=== PATIENT | male | born 1985 | race American Indian/Alaskan Native ===

== ENCOUNTER 2017-09-20 15:02 | Emergency (ER) | payer OTHER ==
[2017-09-20 15:09] VITALS: BP 154/76; PULSE 86; RESP 18; TEMP 97.6; O2SAT 99
--- NOTE | 2017-09-20 15:40 | ED PDOC ---
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 Patient states he was going through a bag and there was dry blood on the wrappers his hand touched. Patient reports the wrappers have not been used since 8 AM (7 hours prior to arrival). Patient has no open cuts or wounds and reports he washed his hand immediately. Patient states he was told to come to the ED to follow up for precautionary measures thus prompting his visit. Past Medical History Reviewed: Historical Data, Nursing Documentation, Vital Signs Vital Signs: Last Vital Signs Temp 97.6 F 09/20/17 15:07 Pulse 86 09/20/17 15:07 Resp 18 09/20/17 15:07 BP 154/76 H 09/20/17 15:07 Pulse Ox 99 09/20/17 15:40 - Surgical History Surgical History: No Surg Hx - Family History Family History: States: Unknown Family Hx - Allergies Allergies/Adverse Reactions: Allergies Allergy/AdvReac Type Severity Reaction Status Date / Time No Known Allergies Allergy Verified 09/20/17 15:07 Review of Systems ROS Statement: Except As Marked, All Systems Reviewed And Found Negative Skin: Negative for: Other (open cuts or wounds.) Physical Exam - Reviewed Nursing Documentation Reviewed: Yes Vital Signs Reviewed: Yes - Physical Exam Appears: Positive for: Well, Non-toxic, No Acute Distress Head Exam: Positive for: ATRAUMATIC, NORMAL INSPECTION, NORMOCEPHALIC Skin: Positive for: Normal Color, Warm, Dry Eye Exam: Positive for: Normal appearance Respiratory: Positive for: Normal Breath Sounds. Negative for: Respiratory Distress Neurologic/Psych: Positive for: Alert, Oriented (x 3) Comments: Patient presents with a limited exam due to no open wounds or cuts. Patient was told to follow up with ED for precautionary measures prompting his visit. - ECG O2 Sat by Pulse Oximetry: 99 (RA) Pulse Ox Interpretation: Normal Medical Decision Making Medical Decision Making: TIME: 1540 Plan: -- Based on history and exam, patient will be discharged. Patient states he fully agrees with and understands discharge instructions. States that he agrees with the plan and disposition. Verbalized and repeated discharge instructions and plan. I have given the patient opportunity to ask any additional questions. Scribe Attestation: Documented by Lilly Diaz, acting as a scribe for Yvonne Membreno PA-C. Provider Scribe Attestation: All medical record entries made by the Scribe were at my direction and personally dictated by me. I have reviewed the chart and agree that the record accurately reflects my personal performance of the history, physical exam, medical decision making, and the department course for this patient. I have also personally directed, reviewed, and agree with the discharge instructions and disposition. Disposition - Clinical Impression Clinical Impression: Normal exam - Patient ED Disposition Is Patient to be Admitted: No Counseled Patient/Family Regarding: Diagnosis, Need For Followup - Disposition Disposition: Routine/Home Disposition Time: 15:31 Condition: STABLE Forms: [employer] ([place])
== END 2017-09-20 15:44 | disposition home or self-care (01) ==
LOC: H.ER 15:02
DX: Z77.21 Contact with and (suspected) exposure to potentially hazardous body fluids (principal); Y99.0 Civilian activity done for income or pay